=== PATIENT | male | born 1985 | race Asian ===

== ENCOUNTER 2017-09-23 09:00 | Emergency (ER) | payer OTHER ==
[2017-09-23 09:10] VITALS: BP 118/82
[2017-09-23] MEDS ORDERED: IBUPROFEN 800 MG TABLET PO ONE (09:33)
--- NOTE | 2017-09-23 09:57 | RADIOLOGY REPORT (SQ) ---
EXAM DESCRIPTION: FOOT RIGHT COMPLETE COMPLETED DATE/TIME: 09/23/2017 9:48 am REASON FOR STUDY: pain COMPARISON: None. NUMBER OF VIEWS: Three views. TECHNIQUE: AP, lateral and oblique radiographic images acquired of the right foot. LIMITATIONS: None. FINDINGS: MINERALIZATION: Normal. BONES: No acute fracture or dislocation. No worrisome bone lesions. JOINTS: No effusions. SOFT TISSUES: No soft tissue swelling. No foreign body. OTHER: No other significant finding. IMPRESSION: NEGATIVE STUDY OF THE RIGHT FOOT. NO RADIOGRAPHIC EVIDENCE OF ACUTE INJURY. TECHNICAL DOCUMENTATION: JOB ID: [id number] [employer]- All Rights Reserved Reading location - IP/workstation name: [email or web address]
--- NOTE | 2017-09-23 10:17 | ER Document Report ---
ED Extremity Problem, Lower - General Chief Complaint: Foot Pain Stated Complaint: RIGHT FOOT PAIN Time Seen by Provider: 09/23/17 09:23 Mode of Arrival: Ambulatory Information source: Patient Notes: 32-year-old male presented ED for complaint of right foot pain. He states he fractured his foot about a year ago and he just went on a long bike ride with his friends yesterday. He states in the he was driving home he also he noticed that there was some pain in his ankle he applied pressure and ice. States overnight the foot began to swell and the pain became more painful. He became concerned so he came to the emergency room to have his ankle evaluated. Patient is alert and oriented respirations regular and unlabored speaking in full clear sentences ambulate with a limp. Patient is in no acute distress at this time. TRAVEL OUTSIDE OF THE [place] IN LAST 30 DAYS: No - HPI Patient complains to provider of: Injury, Pain, Swelling Location: Ankle - Right ankle and foot, Foot Occurred: Yesterday Where: Public place Onset/Duration: Gradual, Worse Quality of pain: Achy, Throbbing Severity: Moderate Pain Level: 4 Context: Other - States he went for a long bike ride and on the way driving home from the bike ride the pain started and became progressively worse Recent injury: Possibly Associated symptoms: Painful ambulation Exacerbated by: Hanging down, Movement, Walking Relieved by: Elevation, Ice, Rest - Related Data Allergies/Adverse Reactions: No Known Allergies Allergy (Verified 09/23/17 09:06) Past Medical History - General Information source: Patient - Social History Smoking Status: Former Smoker Frequency of alcohol use: Occasional Drug Abuse: None 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[employer] Lives with: Family Family History: Reviewed & Not Pertinent Patient has suicidal ideation: No Patient has homicidal ideation: No - Past Medical History Cardiac Medical History: Reports: None Pulmonary Medical History: Reports: None EENT Medical History: Reports: None Neurological Medical History: Reports: None Endocrine Medical History: Reports: None Renal/ Medical History: Reports: None Malignancy Medical History: Reports None GI Medical History: Reports: None Musculoskeltal Medical History: Reports Hx Musculoskeletal Trauma Skin Medical History: Reports None Psychiatric Medical History: Reports: None Traumatic Medical History: Reports: Hx Fractures - Right foot fracture Infectious Medical History: Reports: None Surgical Hx: Negative Past Surgical History: Reports: None Review of Systems - Review of Systems Musculoskeletal: Other - Pain swelling bruising to the right foot Physical Exam - Vital signs Vitals: Temp Pulse Resp BP Pulse Ox 98.6 F 98 18 118/82 94 09/23/17 09:10 09/23/17 09:10 09/23/17 09:10 09/23/17 09:10 09/23/17 09:10 - Extremities Ankle: Tender, Edema, Limited ROM - Due to pain, Unable to bear weight - Painful ambulation. No: Positive Adler's test Foot: Tender, Ecchymosis, Edema, No evidence of FB, Unable to bear weight - Painful ambulation Course - Re-evaluation Re-evalutation: 09/23/17 22:00 X-ray results were discussed with patient and written report given to patient. Patient refused Aedel wrap or stirrup splint. He states he would like crutches. Patient was given instructions for elevation ice and compression for his ankle pain. He was also instructed to follow-up with orthopedics. Verbalized understanding of instructions and verbalized agreement with treatment plans. - Vital Signs Vital signs: Temp Pulse Resp BP Pulse Ox 98.6 F 98 18 118/82 94 09/23/17 09:10 09/23/17 09:10 09/23/17 09:10 09/23/17 09:10 09/23/17 09:10 - Diagnostic Test Radiology reviewed: Image reviewed, Reports reviewed Procedures - Immobilization Right Foot Time completed: 10:20 Immobilizer type: Crutches Performed by: PCT Post-Proc Neuro Vasc Exam: Normal Alignment checked and good: Yes Discharge - Discharge Clinical Impression: Right foot pain Condition: Stable Disposition: HOME, SELF-CARE Additional Instructions: He was seen today for right foot pain. There is no breaks or abnormalities noted on the x-ray at this time. USE OF CRUTCHES: The doctor has recommended that you not bear weight at this time. You will need to use crutches. Adjust the crutches so the tops come to about two inches under the armpit while you are standing upright. Use your hands -- not your armpits -- to support your weight. To get into a chair, support yourself with one crutch on the injured side. Hold the chair with the other hand, then lower yourself while putting all your weight on the good leg. Going up stairs is `good leg up, step up, then bring up crutches and bad leg.' Down stairs is `bad leg and crutches down, then bring good leg down.' If you develop numbness or swelling in an arm or hand, you are using the crutches incorrectly. Return if you are having any problems with the crutches. ICE & ELEVATION: Apply ice packs frequently against the painful area. Many different schedules are recommended, such as "20 minutes on, 20 minutes off" or "one hour ice, two hours rest." If you need to work, you may need to go longer between ice treatments. You should plan to have the area ice packed AT LEAST one- fourth of the time. The ice should be applied over the wrap, tape, or splint, or over a layer of cloth -- not directly against the skin. Some ice bags have a built-in cloth and can be put directly on the skin. Your injured part should be elevated as much as possible over the next 48 hours. Try to keep the injury above the level of the heart. Avoid use of the injured area. Elevation and rest will decrease the swelling. USE OF VOFL-NCE-GJWLPED IBUPROFEN: Ibuprofen (Advil, Nuprin, Medipren, Motrin IB) is a medication for fever and pain control. In addition, it has anti- inflammatory effects which may be beneficial, especially in the treatment of injuries. It's best to take ibuprofen with food. Persons with ulcer disease or allergy to aspirin should notify their physician of this before taking ibuprofen. Ibuprofen can be given every four to six hours, for a total of four doses daily. Age Pain or fever dose Antiinflammatory dose 6-8 yr 200 mg (1 tab) 200 mg (1 tab) 9-11 yr 200 mg (1 tab) 200-400 mg (1-2 tab) 11-14 yr 200-400 mg (1-2 tab) 400 mg (2 tab) 15-adult 400 mg (2 tab) 600 mg (3 tab) FOLLOW-UP CARE: If you have been referred to a physician for follow-up care, call the physician s office for an appointment as you were instructed or within the next two days. If you experience worsening or a significant change in your symptoms, notify the physician immediately or return to the Emergency Department at any time for re-evaluation. Referrals: KAREN GRIFFITHS MD [ACTIVE STAFF] - Follow up as needed
== END 2017-09-23 10:24 | disposition home or self-care (01) ==
LOC: ER 09:00
DX: S90.31XA Contusion of right foot, initial encounter (principal); M79.671 Pain in right foot; M25.571 Pain in right ankle and joints of right foot; M79.89 Other specified soft tissue disorders; X50.3XXA Overexertion from repetitive movements, initial encounter; Y93.55 Activity, bike riding; Z87.891 Personal history of nicotine dependence
CPT/HCPCS: 99283